=== PATIENT | female | born 1945 | race Caucasian/White ===

== ENCOUNTER 2024-05-21 07:47 | Emergency (ER) | payer MEDICARE, OTHER ==
[~2024-05-21] VITALS: Ht 160 cm; Wt 83.0 kg
[2024-05-21] MEDS ORDERED: ONDANSETRON HCL/PF 4 MG/2 ML VIAL ONE (07:58)
[2024-05-21 08:13] LABS: BASOPHILS % (AUTO) 1.1 % (0.0-2.0); EOSINOPHILS # (AUTO) 0.2 K/uL (0.0-0.7); HEMATOCRIT 42 % (33-45); HEMOGLOBIN 13.8 g/dL (11.5-14.8); LYMPHOCYTES # (AUTO) 1.2 K/uL (0.8-4.8); LYMPHOCYTES % (AUTO) 29.3 % (20.0-44.0); MEAN CORPUSCULAR HEMOGLOBIN 27 PG (26.0-33.0); MEAN CORPUSCULAR HGB CONC 33 g/dl (31.0-36.0); MEAN CORPUSCULAR VOLUME 81 fL (82-100); MONOCYTES # (AUTO) 0.4 K/uL (0.1-1.30); MONOCYTES % (AUTO) 8.5 % (2.0-12.0); NEUTROPHILS # (AUTO) 2.4 K/uL (1.8-8.9); NEUTROPHILS % (AUTO) 57.1 % (43.0-81.0); PLATELET COUNT (AUTO) 180 K/uL (150-450); RED CELL DISTRIBUTION WIDTH 14.1 % (11.5-15.0); WHITE BLOOD COUNT (AUTO) 4.2 K/uL (4.3-11.0)
[2024-05-21] MEDS: IV NS 0.9% 500 ML BAG IV ONE (08:14)
[2024-05-21] MEDS: ONDANSETRON HCL/PF 4 MG/2 ML VIAL IVP ONE (08:15)
[2024-05-21 08:22] LABS: CALCIUM, SERUM 9.4 mg/dL (8.5-10.1); CARBON DIOXIDE 27 mmol/L (21-32); CHLORIDE 103 mmol/L (98-107); CREATININE 0.7 mg/dL (0.6-1.3); GLUCOSE 211 mg/dL (74-106); POTASSIUM 4.3 mmol/L (3.5-5.1); SODIUM SERUM 139 mmol/L (136-145); UREA NITROGEN, BLOOD 18 mg/dL (7-18)
[2024-05-21 08:28] LABS: ALANINE AMINOTRANSFERASE 45 U/L (12-78); ALBUMIN 3.4 g/dL (3.4-5.0); ALKALINE PHOSPHATASE 92 U/L (46-116); ASPARTATE AMINOTRANSFERASE 19 U/L (15-37); BILIRUBIN,DIRECT 0.1 mg/dL (0.0-0.2); BILIRUBIN,TOTAL 0.2 mg/dL (0.2-1.0); TOTAL PROTEIN, SERUM 7.3 g/dL (6.4-8.2)
[2024-05-21] MEDS ORDERED: DICL100G26 TP (08:42)
[2024-05-21] MEDS ORDERED: FAMO40TA7 PO (08:42)
[2024-05-21] MEDS ORDERED: CHOL500052 PO (08:42)
[2024-05-21] MEDS ORDERED: CARV6.25 PO (08:42)
[2024-05-21] MEDS ORDERED: ASPI-1169 PO (08:42)
[2024-05-21] MEDS ORDERED: CLON0.1T PO (08:42)
[2024-05-21] MEDS ORDERED: CELE200C PO (08:42)
[2024-05-21] MEDS ORDERED: CALC-1026 PO (08:42)
[2024-05-21] MEDS ORDERED: FENO43CA6 PO (08:42)
[2024-05-21] MEDS ORDERED: ALPR0.25 PO (08:42)
[2024-05-21] MEDS ORDERED: MOMETASONE FUROATE TP (08:42)
[2024-05-21] MEDS ORDERED: VALS1TAB6 PO (08:42)
[2024-05-21] MEDS ORDERED: OMEG100037 PO (08:42)
[2024-05-21] MEDS ORDERED: SIMV-46 PO (08:42)
[2024-05-21] MEDS ORDERED: DOCU100T2 PO (08:42)
[2024-05-21] MEDS ORDERED: ONDA4TAB5 PO (09:41)
[2024-05-21 10:03] LABS: APPEARANCE,URINE Clear (CLEAR); BILIRUBIN,URINE Negative (NEGATIVE); BLOOD, URINE Trace-intact Ery/uL (NEGATIVE); COLOR,URINE YELLOW (YELLOW); KETONES,URINE Negative (NEGATIVE); LEUKOCYTE ESTERASE ,URINE Negative (NEGATIVE); NITRITE, URINE Negative (NEGATIVE); PH,URINE 6.5 (5.0-8.0); PROTEIN,URINE 30 mg/dl (NEGATIVE); UGLUCOSE Negative (NEGATIVE); UROBILINOGEN,URINE 0.2 EU/dL (0.2)
[2024-05-21 10:17] VITALS: BP 133/69; TEMP 98.5; O2SAT 96
[2024-05-21 10:22] LABS: ADD URINE CULTURE NO; BACTERIA,URINE Rare /HPF (None Seen); SQUAMOUS EPITHELIAL CELL,UR Rare /HPF (None Seen); WBC,URINE 0-2 /HPF (0-3)
== END 2024-05-21 10:19 | disposition home or self-care (01) ==
LOC: ER 07:54
DX: I10 Essential (primary) hypertension (principal); R42 Dizziness and giddiness; R11.2 Nausea with vomiting, unspecified
CPT/HCPCS: 99285; 96374; 70450; 71045; 93005; 85025; 80048; 80076; 81001; 36415; 84484; J2405; J7040

== ENCOUNTER 2024-07-24 05:37 | Inpatient (IN) | payer MEDICARE, OTHER ==
[2024-07-24] VITALS (21 sets, daily range): BP systolic 98–136; BP diastolic 49–82; TEMP 98.6–100.4; O2SAT 93–98
[~2024-07-24] VITALS: Ht 165.1 cm; Wt 87.2 kg
[~2024-07-24 05:37] MED LIST: ALPR0.25 PO; ASPI-1169 PO; CALC-1026 PO; CARV6.25 PO; CELE200C PO; CHOL500052 PO; CLON0.1T PO; DICL100G26 TP; DOCU100T2 PO; FAMO40TA7 PO; FENO43CA6 PO; MOMETASONE FUROATE TP; OMEG100037 PO; ONDA4TAB5 PO; SIMV-46 PO; VALS1TAB6 PO
[2024-07-24 06:38] LABS: ABG BASE EXCESS 0.8 mmol/L (-2.0-3.0); ABG OXYGEN SATURATION 94.1 % (94.0-98.0); ABG PCO2 36.1 mmHg (32.0-45.0); ABG PH 7.448 (7.350-7.450); ABG PO2 70.2 mmHg (83.0-108.0); ABG TOTAL HEMOGLOBIN 14.5 G/dL (12.0-16.0); COHb 0.2 % (0.5-1.5); MetHb 0.3 % (0.0-1.5); O2Hb 93.6 % (94.0-97.0); SITE, ABG RIGHT RADIAL
[2024-07-24] MEDS ORDERED: AZITHROMYCIN 500 MG VIAL ONE (06:39)
[2024-07-24] MEDS ORDERED: CEFTRIAXONE 1GM BAG (ER ONLY) 50 ML IV ONE (06:39)
[2024-07-24] MEDS ORDERED: ACETAMINOPHEN ES 500 MG TABLET ONE (06:39)
[2024-07-24] MEDS: IV NS 0.9% 500 ML BAG IV ONE (06:42)
[2024-07-24] MEDS: CEFTRIAXONE 1GM BAG (ER ONLY) 50 ML IV ONE (06:42)
[2024-07-24] MEDS: ACETAMINOPHEN ES 500 MG TABLET PO ONE (06:43)
[2024-07-24 06:51] LABS: BASOPHILS % (AUTO) 0.2 % (0.0-2.0); EOSINOPHILS % (AUTO) 0.1 % (0.0-6.0); HEMATOCRIT 43 % (33-45); HEMOGLOBIN 13.9 g/dL (11.5-14.8); LYMPHOCYTES # (AUTO) 0.2 K/uL (0.8-4.8); LYMPHOCYTES % (AUTO) 4.2 % (20.0-44.0); MEAN CORPUSCULAR HEMOGLOBIN 26 PG (26.0-33.0); MEAN CORPUSCULAR HGB CONC 32 g/dl (31.0-36.0); MEAN CORPUSCULAR VOLUME 81 fL (82-100); MONOCYTES # (AUTO) 0.2 K/uL (0.1-1.30); MONOCYTES % (AUTO) 3.9 % (2.0-12.0); NEUTROPHILS # (AUTO) 5.2 K/uL (1.8-8.9); NEUTROPHILS % (AUTO) 91.6 % (43.0-81.0); PLATELET COUNT (AUTO) 146 K/uL (150-450); RED BLOOD CELL COUNT(AUTO) 5.34 MIL/uL (4.0-5.2); RED CELL DISTRIBUTION WIDTH 14.1 % (11.5-15.0); WHITE BLOOD COUNT (AUTO) 5.6 K/uL (4.3-11.0)
[2024-07-24] MEDS: AZITHROMYCIN 500 MG in IV D5W 250 ML IV ONE (07:07)
[2024-07-24 07:09] LABS: ALANINE AMINOTRANSFERASE 68 U/L (12-78); ALBUMIN 3.8 g/dL (3.4-5.0); ALKALINE PHOSPHATASE 73 U/L (46-116); ASPARTATE AMINOTRANSFERASE 39 U/L (15-37); BILIRUBIN,DIRECT 0.2 mg/dL (0.0-0.2); BILIRUBIN,TOTAL 0.5 mg/dL (0.2-1.0); CALCIUM, SERUM 9.1 mg/dL (8.5-10.1); CARBON DIOXIDE 31 mmol/L (21-32); CHLORIDE 100 mmol/L (98-107); CREATININE 0.9 mg/dL (0.6-1.3); GLUCOSE 219 mg/dL (74-106); POTASSIUM 3.8 mmol/L (3.5-5.1); SODIUM SERUM 136 mmol/L (136-145); TOTAL PROTEIN, SERUM 7.4 g/dL (6.4-8.2); UREA NITROGEN, BLOOD 23 mg/dL (7-18)
[2024-07-24 07:14] LABS: LACTIC ACID 2.9 mmol/L (0.4-2.0)
[2024-07-24 07:18] LABS: INR 1.03 (0.91-1.10); PARTIAL THROMBOPLASTIN TIME 25.4 SEC (24.3-34.3); PROTHROMBIN TIME 10.9 SECS (9.2-11.1)
[2024-07-24] MEDS ORDERED: MAGNESIUM HYDROXIDE 30 ML UDC PO PRN (08:30)
[2024-07-24] MEDS ORDERED: ONDANSETRON HCL/PF 4 MG/2 ML VIAL IVP PRN (08:30)
[2024-07-24] MEDS ORDERED: Z GUARD REMEDY 4 OZ OINT TP PRN (08:30)
[2024-07-24] MEDS ORDERED: MAG HYDROX/AL HYDROX/SIMETH 30 ML UDC PO PRN (08:30)
[2024-07-24] MEDS: IV NS 0.9% 1,000 ML IV PRN (09:13)
[2024-07-24] MEDS: ACETAMINOPHEN 325 MG TABLET PO PRN (09:26)
[2024-07-24] MEDS: ENOXAPARIN SODIUM 40 MG/0.4 ML DISP.SYRIN SQ SCH (09:32)
[2024-07-24] MEDS: SYSTANE EACHEYE SCH (20:44)
[2024-07-25] VITALS (16 sets, daily range): BP systolic 99–146; BP diastolic 44–97; TEMP 97.3–99; O2SAT 93–97
[2024-07-25 04:46] LABS: BASOPHILS % (AUTO) 0.3 % (0.0-2.0); EOSINOPHILS # (AUTO) 0.1 K/uL (0.0-0.7); EOSINOPHILS % (AUTO) 2.1 % (0.0-6.0); HEMATOCRIT 38 % (33-45); HEMOGLOBIN 12.1 g/dL (11.5-14.8); LYMPHOCYTES # (AUTO) 0.9 K/uL (0.8-4.8); LYMPHOCYTES % (AUTO) 23.7 % (20.0-44.0); MEAN CORPUSCULAR HEMOGLOBIN 26 PG (26.0-33.0); MEAN CORPUSCULAR HGB CONC 32 g/dl (31.0-36.0); MEAN CORPUSCULAR VOLUME 81 fL (82-100); MONOCYTES # (AUTO) 0.3 K/uL (0.1-1.30); MONOCYTES % (AUTO) 9.3 % (2.0-12.0); NEUTROPHILS # (AUTO) 2.3 K/uL (1.8-8.9); NEUTROPHILS % (AUTO) 64.6 % (43.0-81.0); PLATELET COUNT (AUTO) 121 K/uL (150-450); RED BLOOD CELL COUNT(AUTO) 4.65 MIL/uL (4.0-5.2); RED CELL DISTRIBUTION WIDTH 14.3 % (11.5-15.0); WHITE BLOOD COUNT (AUTO) 3.6 K/uL (4.3-11.0)
[2024-07-25 05:08] LABS: CALCIUM, SERUM 7.4 mg/dL (8.5-10.1); CARBON DIOXIDE 29 mmol/L (21-32); CHLORIDE 106 mmol/L (98-107); CREATININE 0.7 mg/dL (0.6-1.3); GLUCOSE 145 mg/dL (74-106); MAGNESIUM 1.6 mg/dL (1.8-2.4); PHOSPHORUS 2.4 mg/dL (2.5-4.9); POTASSIUM 3.4 mmol/L (3.5-5.1); SODIUM SERUM 141 mmol/L (136-145); UREA NITROGEN, BLOOD 10 mg/dL (7-18)
[2024-07-25 05:43] LABS: CHOLESTEROL 124 mg/dL (<200); HDL CHOLESTEROL 40 mg/dL (40-60); LDL 73 mg/dL (0-99); TRIGLYCERIDES 119 mg/dL (30-150)
[2024-07-25 05:44] LABS: ABG BASE EXCESS 1.7 mmol/L (-2.0-3.0); ABG OXYGEN SATURATION 97.2 % (94.0-98.0); ABG PH 7.402 (7.350-7.450); ABG PO2 95.6 mmHg (83.0-108.0); ABG TOTAL HEMOGLOBIN 12.8 G/dL (12.0-16.0); COHb 0.2 % (0.5-1.5); MetHb 0.3 % (0.0-1.5); O2Hb 96.7 % (94.0-97.0); SITE, ABG RIGHT RADIAL
[2024-07-25] MEDS: CEFTRIAXONE 2 G in IV D5W 100 ML IV SCH (07:35)
[2024-07-25] MEDS: AZITHROMYCIN 500 MG in IV D5W 250 ML IV SCH (08:01)
[2024-07-25] MEDS: POTASSIUM CHLORIDE 20 MEQ TAB.PRT.SR PO SCH (09:51)
[2024-07-25] MEDS: MAGNESIUM OXIDE 400 MG TABLET PO ONE (09:51)
[2024-07-25] MEDS: CALCIUM CARBONATE (1250) 500 MG TABLET PO SCH (13:07)
[2024-07-25] MEDS: ASPIRIN 81 MG TAB.CHEW PO SCH (13:07)
[2024-07-25] MEDS: K PHOS NEUTRAL 250 MG TABLET PO ONE (15:23)
[2024-07-25] MEDS: CARVEDILOL 6.25 MG TABLET PO SCH (16:12)
[2024-07-25] MEDS: SIMVASTATIN 20 MG TABLET PO SCH (21:23)
[2024-07-26] VITALS: BP 146/71; TEMP 98.6; O2SAT 94
[2024-07-26] MEDS: ALPRAZOLAM 0.25 MG TABLET PO PRN (00:20)
[2024-07-26 05:00] VITALS: BP 134/62; TEMP 99.7; O2SAT 95
[2024-07-26 07:00] VITALS: BP 143/63; TEMP 98.4; O2SAT 93
[2024-07-26] MEDS: Fenofibrate 48 MG TABLET PO SCH (08:30)
[2024-07-26] MEDS: VALSARTAN 80 MG TABLET PO SCH (08:31)
[2024-07-26] MEDS: HYDROCHLOROTHIAZIDE 25 MG TABLET PO SCH (08:31)
[2024-07-26 08:57] LABS: CALCIUM, SERUM 7.9 mg/dL (8.5-10.1); CARBON DIOXIDE 23 mmol/L (21-32); CHLORIDE 106 mmol/L (98-107); CREATININE 0.6 mg/dL (0.6-1.3); GLUCOSE 145 mg/dL (74-106); MAGNESIUM 1.9 mg/dL (1.8-2.4); POTASSIUM 3.6 mmol/L (3.5-5.1); SODIUM SERUM 139 mmol/L (136-145); UREA NITROGEN, BLOOD 11 mg/dL (7-18)
[2024-07-26] MEDS: CEFTRIAXONE 2 G in IV D5W 100 ML IV SCH (09:20)
[2024-07-26 11:30] VITALS: BP 162/79; TEMP 98.8; O2SAT 90
[2024-07-26 16:00] VITALS: BP 129/61; TEMP 98.1; O2SAT 91
[2024-07-26 16:54] LABS: BASOPHILS % (AUTO) 0.7 % (0.0-2.0); EOSINOPHILS # (AUTO) 0.1 K/uL (0.0-0.7); EOSINOPHILS % (AUTO) 1.3 % (0.0-6.0); HEMATOCRIT 38 % (33-45); HEMOGLOBIN 12.1 g/dL (11.5-14.8); LYMPHOCYTES # (AUTO) 0.9 K/uL (0.8-4.8); LYMPHOCYTES % (AUTO) 15.6 % (20.0-44.0); MEAN CORPUSCULAR HEMOGLOBIN 26 PG (26.0-33.0); MEAN CORPUSCULAR HGB CONC 32 g/dl (31.0-36.0); MEAN CORPUSCULAR VOLUME 81 fL (82-100); MONOCYTES # (AUTO) 0.5 K/uL (0.1-1.30); MONOCYTES % (AUTO) 9.7 % (2.0-12.0); NEUTROPHILS % (AUTO) 72.7 % (43.0-81.0); PLATELET COUNT (AUTO) 135 K/uL (150-450); RED BLOOD CELL COUNT(AUTO) 4.69 MIL/uL (4.0-5.2); RED CELL DISTRIBUTION WIDTH 14.1 % (11.5-15.0); WHITE BLOOD COUNT (AUTO) 5.5 K/uL (4.3-11.0)
[2024-07-26 20:00] VITALS: BP 127/49; TEMP 98.4; O2SAT 93
[2024-07-27] VITALS: BP 168/85; TEMP 99.9; O2SAT 92
[2024-07-27 04:00] VITALS: BP 123/69; TEMP 98.6; O2SAT 94
[2024-07-27 07:00] VITALS: BP 130/69; TEMP 98.1; O2SAT 94
[2024-07-27 16:00] VITALS: BP 138/71; TEMP 98.1; O2SAT 92
[2024-07-27] MEDS: DICLOFENAC TOPICAL 100 GM TUBE TP PRN (17:03)
[2024-07-27 20:00] VITALS: BP 159/13; TEMP 98.1; O2SAT 94
[2024-07-28] VITALS (8 sets, daily range): BP systolic 103–147; BP diastolic 67–87; TEMP 97.5–99.1; O2SAT 89–95
[2024-07-28] MEDS: AZITHROMYCIN 250 MG TABLET PO ONE (08:06)
[2024-07-29] VITALS: BP 107/54; TEMP 98.2; O2SAT 96
[2024-07-29 04:00] VITALS: BP 116/64; TEMP 98.2; O2SAT 96
[2024-07-29 07:00] VITALS: BP 144/81; TEMP 98.4; O2SAT 94
[2024-07-29 07:33] VITALS: O2SAT 92
[2024-07-29 08:39] VITALS: BP 144/81
[2024-07-29] MEDS ORDERED: AMOX-430 PO (09:05)
[2024-07-29 09:14] LABS: CALCIUM, SERUM 8.1 mg/dL (8.5-10.1); CARBON DIOXIDE 27 mmol/L (21-32); CHLORIDE 102 mmol/L (98-107); CREATININE 0.8 mg/dL (0.6-1.3); GLUCOSE 259 mg/dL (74-106); POTASSIUM 3.7 mmol/L (3.5-5.1); SODIUM SERUM 137 mmol/L (136-145); UREA NITROGEN, BLOOD 12 mg/dL (7-18)
== END 2024-07-29 12:08 | disposition home or self-care (01) | DRG 193 ==
LOC: ER 05:39 → ICU 07:44 → TELE 07-25 09:26
PROVIDERS: ADMIT Internal Medicine; ATTEND Internal Medicine
DX: J15.9 Unspecified bacterial pneumonia (principal); J96.01 Acute respiratory failure with hypoxia; E87.20 Acidosis, unspecified; E11.65 Type 2 diabetes mellitus with hyperglycemia; E78.5 Hyperlipidemia, unspecified; F41.9 Anxiety disorder, unspecified; Z79.82 Long term (current) use of aspirin; Z79.899 Other long term (current) drug therapy; I10 Essential (primary) hypertension; E66.9 Obesity, unspecified; R00.0 Tachycardia, unspecified
CPT/HCPCS: 36415; 36600; 71045-TC; 80048-TC; 80061-TC; 80076-TC; 82803-TC; 83605-TC; 83735-TC; 84100-TC; 84484-TC; 85025-TC; 85730-TC; 87040-TC; 87081-TC; 93307-TC; 93970-TC; 94799-TC; 97110-TC; 97116-TC; 97530-TC; G0378; J0456; J0696; J1650; J7030; J7060

== ENCOUNTER 2024-10-14 16:33 | Emergency (ER) | payer MEDICARE, OTHER ==
[~2024-10-14] VITALS: Ht 154.9 cm; Wt 81.6 kg
[~2024-10-14 16:33] MED LIST changes: +AMOX-430 PO; -ONDA4TAB5 PO
[2024-10-14 17:30] LABS: BASOPHILS % (AUTO) 0.7 % (0.0-2.0); EOSINOPHILS # (AUTO) 0.1 K/uL (0.0-0.7); EOSINOPHILS % (AUTO) 1.5 % (0.0-6.0); HEMATOCRIT 39 % (33-45); HEMOGLOBIN 13.2 g/dL (11.5-14.8); LYMPHOCYTES # (AUTO) 1.4 K/uL (0.8-4.8); LYMPHOCYTES % (AUTO) 22.1 % (20.0-44.0); MEAN CORPUSCULAR HEMOGLOBIN 28 PG (26.0-33.0); MEAN CORPUSCULAR HGB CONC 34 g/dl (31.0-36.0); MEAN CORPUSCULAR VOLUME 82 fL (82-100); MONOCYTES # (AUTO) 0.5 K/uL (0.1-1.30); MONOCYTES % (AUTO) 8.5 % (2.0-12.0); NEUTROPHILS # (AUTO) 4.2 K/uL (1.8-8.9); NEUTROPHILS % (AUTO) 67.2 % (43.0-81.0); PLATELET COUNT (AUTO) 152 K/uL (150-450); RED BLOOD CELL COUNT(AUTO) 4.78 MIL/uL (4.0-5.2); WHITE BLOOD COUNT (AUTO) 6.2 K/uL (4.3-11.0)
[2024-10-14 17:54] LABS: ALANINE AMINOTRANSFERASE 56 U/L (12-78); ALBUMIN 3.7 g/dL (3.4-5.0); ALKALINE PHOSPHATASE 93 U/L (46-116); ASPARTATE AMINOTRANSFERASE 24 U/L (15-37); BILIRUBIN,TOTAL 0.2 mg/dL (0.2-1.0); CALCIUM, SERUM 8.7 mg/dL (8.5-10.1); CARBON DIOXIDE 31 mmol/L (21-32); CHLORIDE 102 mmol/L (98-107); CREATININE 0.8 mg/dL (0.6-1.3); GLUCOSE 300 mg/dL (74-106); NT-PRO BNP 143 pg/mL (0-125); POTASSIUM 4.1 mmol/L (3.5-5.1); SODIUM SERUM 138 mmol/L (136-145); TOTAL PROTEIN, SERUM 6.8 g/dL (6.4-8.2); UREA NITROGEN, BLOOD 21 mg/dL (7-18)
[2024-10-14 19:30] VITALS: BP 133/70; TEMP 98.5; O2SAT 95
== END 2024-10-14 19:31 | disposition home or self-care (01) ==
LOC: ER 16:38
DX: R07.81 Pleurodynia (principal); I10 Essential (primary) hypertension; E78.5 Hyperlipidemia, unspecified; Z79.1 Long term (current) use of non-steroidal anti-inflammatories (NSAID); Z79.51 Long term (current) use of inhaled steroids; Z79.82 Long term (current) use of aspirin; Z79.899 Other long term (current) drug therapy
CPT/HCPCS: 36415; 71045-TC; 80048-TC; 80076-TC; 83880; 84484-TC; 85025-TC